=== PATIENT | female | born 1940 | race Caucasian/White ===

== ENCOUNTER 2017-07-07 14:35 | Emergency (ER) | payer MEDICARE ==
[~2017-07-07] VITALS: Ht 154.9 cm; Wt 68.0 kg
[~2017-07-07 14:35] MED LIST: ACET1CAP18 PO; ASPI1TAB69 PO; CALCTAB33 PO; CLON1TAB OR; FLUO10TA PO; HYDR-3133 PO; HYDR-3516 PO; HYDR-755 PO; LEVO.075 PO; LEXA10TA PO; MELA5TAB15 PO; MULTTAB67 PO; OMEP20TA PO; VITA10002 PO; VITA10003 PO; WARF5 PO
[2017-07-07 14:38] VITALS: BP 129/92; PULSE 74; RESP 16; TEMP 97.8; O2SAT 97
[2017-07-07] MEDS ORDERED: HYDR-755 PO (14:56)
[2017-07-07] MEDS ORDERED: CLON0.5T PO (14:56)
[2017-07-07] MEDS ORDERED: LEVO75TA3 PO (14:56)
[2017-07-07] MEDS ORDERED: VITA100064 PO (14:57)
[2017-07-07] MEDS ORDERED: SODIUM CHLORIDE 0.9% FLUSH 10 ML FLUSH IVF PRN (15:00)
[2017-07-07 15:13] LABS: AUTOMATED NEUTROPHIL # 5.2 TH/MM3 (1.8-7.7); BASOPHIL # 0.3 TH/MM3 (0-0.2); BASOPHIL % 2.8 % (0.0-2.0); EOSINOPHIL # 0.2 TH/MM3 (0-0.4); EOSINOPHIL % 1.9 % (0.0-4.0); HEMATOCRIT 41.4 % (35.0-46.0); HEMO FLAGS DIFF FINAL; LYMPH % 31.6 % (9.0-44.0); LYMPHOCYTE # 2.9 TH/MM3 (1.0-4.8); MEAN CORPUSCULAR HEMOGLOBIN 29.3 PG (27.0-34.0); MEAN CORPUSCULAR HGB CONC 32.2 % (32.0-36.0); MONO % 5.6 % (0.0-8.0); NEUT % 58.1 % (16.0-70.0); PLATELET COUNT 209 TH/MM3 (150-450); RED BLOOD COUNT 4.55 MIL/MM3 (4.00-5.30); RED CELL DISTRIBUTION WIDTH 14.2 % (11.6-17.2); WHITE BLOOD COUNT 9.1 TH/MM3 (4.0-11.0)
[2017-07-07 15:22] LABS: POTASSIUM 3.7 MEQ/L (3.5-5.1)
[2017-07-07 15:25] LABS: BICARBONATE 24.6 MEQ/L (21.0-32.0)
--- NOTE | 2017-07-07 15:25 | PD ---
HPI . Extremity pain Chief Complaint: Musculoskeletal Complaint Time Seen by Provider: 14:46 Travel History International Travel<30 days: No Contact w/Intl Traveler<30days: No Traveled to known affect area: No History of Present Illness HPI This patient presents with a 2 day history of calf pain. The pain has not been continuous. She actually no longer has pain. She states that her pain yesterday was worse with walking. She described it as a pulling sensation. It was relieved by rest. She awaken this morning with a burning sensation in her right hung. That sensation has now resolved. She now has left hip pain. In addition, she is complaining with shortness of breath which has been a chronic problem for a while now. She reports a 30 minute episodes of chest pain yesterday. She is concerned because she has a history of DVT and PE. Her Coumadin was stopped 2 weeks ago. PFSH Past Medical History Arthritis: Yes Anxiety: Yes Depression: Yes Cancer: No Cardiovascular Problems: No Diabetes: No Diminished Hearing: No Deep Vein Thrombosis: Yes Endocrine: Yes Gastrointestinal Disorders: Yes Genitourinary: No Hiatal Hernia: Yes Immune Disorder: No Musculoskeletal: Yes Neurologic: Yes Psychiatric: Yes Reproductive: No Respiratory: Yes (P.E.) Immunizations Current: No Thyroid Disease: Yes (Hypo-) Ulcer: No Influenza Vaccination: Yes ?: Not Menopausal: Yes Dilation and Curettage (D&C): Yes Tubal Ligation: Yes Past Surgical History Abdominal Surgery: Yes Appendectomy: Yes Cardiac Surgery: No Cholecystectomy: Yes Ear Surgery: No Endocrine Surgery: No Eye Surgery: No Genitourinary Surgery: Yes (Bladder) Gynecologic Surgery: Yes Hysterectomy: Yes Oral Surgery: Yes (Teeth extracted ) Thoracic Surgery: No Tonsillectomy: Yes Other Surgery: Yes (Face lift ) Social History Alcohol Use: Yes (Occ.) Tobacco Use: No (E CIGS) Substance Use: No Allergies-Medications (Allergen,Severity, Reaction): Coded Allergies: caffeine (Unverified Allergy, Severe, 07/07/17) Reported Meds & Prescriptions Reported Meds & Active Scripts Active Reported Vitamin D3 (Cholecalciferol) 1,000 Unit Tab 1,000 Units PO DAILY Clonazepam 0.5 Mg Tab 0.5 Mg PO BID Hydroxyzine HCl 10 Mg Tab 10 Mg PO HS Levothyroxine (Levothyroxine Sodium) 75 Mcg Tab 75 Mcg PO DAILY Vitamin B-12 (Cyanocobalamin) 1,000 Mcg Tab 1,000 Mcg PO DAILY Multiple Vitamin 1 Tab 1 Tab PO DAILY Melatonin 5 Mg Tab 3 Mg PO HS Calcium 600+D Plus Minerals (Calcium Carbonate-Vitamin D W/Minerals) 600-400 Mg- Unit Tab 1 Tab PO BID Review of Systems Except as stated in HPI: all other systems reviewed are Neg Respiratory: Positive: Shortness of Breath Musculoskeletal: Positive: Myalgias, No: Limited ROM Skin: No Change in Pigmentation Physical Exam Narrative GENERAL: This is an elderly woman who is using her cell phone in no acute distress. SKIN: Warm and dry. No discoloration of skin of her lower extremities. HEAD: Atraumatic. Normocephalic. EYES: Pupils equal and round. Extraocular movements are intact. ENT: No nasal bleeding or discharge. Mucous membranes pink and moist. NECK: Trachea midline. Neck is supple. CARDIOVASCULAR: Regular rate and rhythm. Heart sounds are normal. RESPIRATORY: No accessory muscle use. Lungs are clear with full air movement throughout. GASTROINTESTINAL: Abdomen soft, non-tender, nondistended. MUSCULOSKELETAL: No obvious deformities. No edema. No calf tenderness. She does have some tenderness in the left hip and pain with log rolling of the left hip. NEUROLOGICAL: Awake and alert. No obvious cranial nerve deficits. Motor grossly within normal limits. Normal speech. PSYCHIATRIC: Appropriate mood and affect; insight and judgment normal. Data Data Last Documented VS Vital Signs Date Time Temp Pulse Resp B/P (MAP) Pulse Ox O2 Delivery O2 Flow Rate FiO2 07/07/17 16:45 59 18 168/77 (107) 94 Room Air 07/07/17 14:38 97.8 Orders Orders Us Leg Venous Doppler Bilat (07/07/17 14:46) Complete Blood Count With Diff (07/07/17 14:52) Basic Metabolic Panel (Bmp) (07/07/17 14:52) Act Partial Throm Time (Ptt) (07/07/17 14:52) Prothrombin Time / Inr (Pt) (07/07/17 14:52) Iv Access Insert/Monitor (07/07/17 14:52) Ecg Monitoring (07/07/17 14:52) Oximetry (07/07/17 14:52) Oxygen Administration (07/07/17 14:52) Ct Pulmonary Angiogram (07/07/17 14:52) Sodium Chloride 0.9% Flush (Ns Flush) (07/07/17 15:00) Hip, Uni(Ap&Lat) W Ap Pelvis (07/07/17 15:01) Iohexol 350 Inj (Omnipaque 350 Inj) (07/07/17 16:00) Labs Laboratory Tests Test 07/07/17 15:05 White Blood Count 9.1 TH/MM3 Red Blood Count 4.55 MIL/MM3 Hemoglobin 13.3 GM/DL Hematocrit 41.4 % Mean Corpuscular Volume 91.0 FL Mean Corpuscular Hemoglobin 29.3 PG Mean Corpuscular Hemoglobin Concent 32.2 % Red Cell Distribution Width 14.2 % Platelet Count 209 TH/MM3 Mean Platelet Volume 7.7 FL Neutrophils (%) (Auto) 58.1 % Lymphocytes (%) (Auto) 31.6 % Monocytes (%) (Auto) 5.6 % Eosinophils (%) (Auto) 1.9 % Basophils (%) (Auto) 2.8 % Neutrophils # (Auto) 5.2 TH/MM3 Lymphocytes # (Auto) 2.9 TH/MM3 Monocytes # (Auto) 0.5 TH/MM3 Eosinophils # (Auto) 0.2 TH/MM3 Basophils # (Auto) 0.3 TH/MM3 CBC Comment DIFF FINAL Differential Comment Prothrombin Time 11.2 SEC Prothromb Time International Ratio 1.0 RATIO Activated Partial Thromboplast Time 24.9 SEC Blood Urea Nitrogen 13 MG/DL Creatinine 1.00 MG/DL Random Glucose 100 MG/DL Calcium Level 8.6 MG/DL Sodium Level 139 MEQ/L Potassium Level 3.7 MEQ/L Chloride Level 106 MEQ/L Carbon Dioxide Level 24.6 MEQ/L Anion Gap 8 MEQ/L Estimat Glomerular Filtration Rate 54 ML/MIN MDM Medical Decision Making Medical Screen Exam Complete: Yes Emergency Medical Condition: Yes Medical Record Reviewed: Yes (this patient has a cerebral aneurysm. She also has hypertension and hypothyroidism. She had a PE about a year ago.) Differential Diagnosis Differential diagnosis of leg pain includes but is not limited to lumbar radiculopathy, arthritis, myalgias, DVT. Narrative Course This patient presents concerned that she has a DVT or a PE. She has a history of same. She has been off of Coumadin for about 2 weeks. She is having some vague lower extremity pain. She had a 30 minute episode of chest pain yesterday. She has chronic shortness of breath. Ultrasound, CT for PE and left hip x-rays are pending. She needs renal function studies before contrast for the CT for PE. CBC & BMP Diagram 07/07/17 15:05 Calcium Level 8.6 Last Impressions Hip and Pelvis X-Ray 07/07/17 1501 Signed Impressions: Service Date/Time: Friday, July 07, 2017 15:59 - CONCLUSION: 1. No fracture , subluxation or other acute bony abnormality. 2. Apparently some recent intravenous contrast administration as there is excreted contrast in the urinary bladder. Nonspecific extrinsic impression seen on the bladder base. Shahram Lai MD Lower Extremity Ultrasound 07/07/17 1446 Signed Impressions: Service Date/Time: Friday, July 07, 2017 15:01 - CONCLUSION: Normal examination. Javy Jay Jr., MD CT for PE: There are segmental pulmonary emboli involving the right upper, right middle and right lower lobe branches as well as the left upper and the left lower lobe branches. Scattered fibrotic scarring is noted bilaterally. There is no alveolar consolidation to suggest focal pneumonia. No pulmonary edema is noted. No pulmonary nodule or mass is noted. Coronary artery calcifications are noted. No mediastinal, hilar or axillary lymphadenopathy is noted. No pleural effusion is noted. There is elevation of the right hemidiaphragm. Physician Communication Physician Communication Case discussed with Dr. Jones. This patient is not having any significant cardiovascular or pulmonary symptoms. That is, her heart rate, blood pressure, respiratory rate and oxygen saturation are acceptable. This patient will be treated outpatient with Xarelto. Diagnosis Primary Impression: Bilateral pulmonary embolism Referrals: Debora Garcia MD 1 week Patient Instructions: General Instructions, Pulmonary Embolism (DC) Med/Other Pt SpecificInfo: Prescription(s) given Scripts Rivaroxaban (Xarelto) 15 Mg Tab 15 MG PO Q12HR for Blood Clot Prevention for 21 Days, TAB 0 Refills Prov: Danae Sorensen MD 07/07/17 Disposition: 01 DISCHARGE HOME Condition: Stable Danae Sorensen MD Jul 07, 2017 15:25
[2017-07-07 15:27] LABS: APTT (PATIENT) 24.9 SEC (24.3-30.1); PROTHROMBIN TIME - PATIENT 11.2 SEC (9.8-11.6)
[2017-07-07 15:29] VITALS: BP 149/95; PULSE 61; RESP 18; O2SAT 94
--- NOTE | 2017-07-07 15:41 | RADRPT ---
EXAM DATE/TIME: 07/07/2017 15:01 [facility] COMPARISON: US LEG BILATERAL VENOUS DOPPLER, March 21, 2016, 8:18. INDICATIONS : Bilateral leg pain. MEDICAL HISTORY : Gastroesophageal reflux disease. Hypothyroidism. Hernia, hiatal. Arthritis. Depression. Pulmonar y embolism. SURGICAL HISTORY : Tonsillectomy.Appendectomy. Cholecystectomy.Tubal ligation. Hysterectomy. Dilation and curettage. Bladder surgery. ENCOUNTER: Subsequent ACUITY: 2 weeks PAIN SCORE: 8/10 LOCATION: Bilateral legs. TECHNIQUE: Venous ultrasound of the left and right leg was performed from the inguinal ligament to the proximal calf. Real-time, color Doppler and spectral tracing, compression and augmentation techniques were us ed. FINDINGS: RIGHT LEG: There is normal compressibility of the deep venous system from the inguinal region to the proximal ca lf. No echogenic clot is seen in the lumen of the common femoral, femoral, popliteal, and posterior tibial veins. There is a normal response of the venous system to proximal and distal augmentation an d respiration. LEFT LEG: There is normal compressibility of the deep venous system from the inguinal region to the proximal ca lf. No echogenic clot is seen in the lumen of the common femoral, femoral, popliteal, and posterior tibial veins. There is a normal response of the venous system to proximal and distal augmentation an d respiration. CONCLUSION: Normal examination. Javy Jay Jr., MD on July 07, 2017 at 15:33 Board Certified Radiologist. This report was verified electronically.
[2017-07-07] MEDS ORDERED: IOHEXOL 350 MG/ML 10 ML VIAL (for RAD DIAG) IVCONTRAST ONE (16:00)
--- NOTE | 2017-07-07 16:19 | RADRPT ---
EXAM DATE/TIME: 07/07/2017 15:59 [facility] COMPARISON: No previous studies available for comparison. INDICATIONS : Left hip area pain today, no known injury MEDICAL HISTORY : None. SURGICAL HISTORY : None. ENCOUNTER: Initial ACUITY: 1 day PAIN SCORE: 7/10 LOCATION: Left hip FINDINGS: The bony pelvis and left hip are intact and have normal morphology. There are no subluxations. There is excreted intravenous contrast in the urinary bladder. Lobulated extrinsic impressions seen o n the bladder base, nonspecific. CONCLUSION: 1. No fracture, subluxation or other acute bony abnormality. 2. Apparently some recent intravenous contrast administration as there is excreted contrast in the ur inary bladder. Nonspecific extrinsic impression seen on the bladder base. Shahram Lai MD on July 07, 2017 at 16:16 Board Certified Radiologist. This report was verified electronically.
--- NOTE | 2017-07-07 16:38 | RADRPT ---
EXAM DATE/TIME: 07/07/2017 15:50 [facility] COMPARISON: CT PULMONARY ANGIOGRAM, March 20, 2016, 17:21. INDICATIONS : Bilateral lower extremity pain. Evaluate for embolism. History of embolism. IV CONTRAST: 65 cc Omnipaque 350 (iohexol) IV RADIATION DOSE: 12.68 CTDIvol (mGy) MEDICAL HISTORY : Deep venous thrombosis. Hernia, hiatal. Gastroesophageal reflux disease. Pulmonary embolism. SURGICAL HISTORY : Appendectomy. Cholecystectomy. Hysterectomy. Bladder surgery. ENCOUNTER: Initial ACUITY: 1 day PAIN SCALE: 5/10 LOCATION: Chest TECHNIQUE: Volumetric scanning of the chest was performed using a pulmonary embolism protocol MIP images were re constructed. Using automated exposure control and adjustment of the mA and/or kV according to patien t size, radiation dose was kept as low as reasonably achievable to obtain optimal diagnostic quality images. DICOM format image data is available electronically for review and comparison. Follow-up recommendations for detected pulmonary nodules are based at a minimum on nodule size and pa tient risk factors according to Fleischner Society Guidelines. FINDINGS: There are segmental pulmonary emboli involving the right upper, right middle and right lower lobe branches as well as the left upper and the left lower lobe branches. Scattered fibrotic s carring is noted bilaterally. There is no alveolar consolidation to suggest focal pneumonia. No pulmonary edema is n oted. No pulmonary nodule or mass is noted. Coronary artery calcifications are noted. No mediastinal, hilar or axillary lymphadenopathy is noted. No pleural effusion is noted. There is elevation of the right hemidiaphra gm. CONCLUSION: 1. Pulmonary emboli within the right upper, right middle, right lower, left upper and left lower lobe pulmonary branches. 2. Scattered fibrotic scarring bilaterally. 3. Coronary artery calcifications. Zackary Alonzo MD on July 07, 2017 at 16:05 Board Certified Radiologist. This report was verified electronically.
[2017-07-07 16:45] VITALS: BP 168/77; PULSE 59; RESP 18; O2SAT 94
[2017-07-07] MEDS ORDERED: RIVAROXABAN 15 MG TAB PO ONE (17:00)
[2017-07-07] MEDS ORDERED: XARE15TA PO (17:00)
== END 2017-07-07 17:15 | disposition home or self-care (01) ==
LOC: PHED 14:35
DX: I26.99 Other pulmonary embolism without acute cor pulmonale (principal); M19.90 Unspecified osteoarthritis, unspecified site; Z86.718 Personal history of other venous thrombosis and embolism; E03.9 Hypothyroidism, unspecified; I25.10 Atherosclerotic heart disease of native coronary artery without angina pectoris; K21.9 Gastro-esophageal reflux disease without esophagitis; Z86.711 Personal history of pulmonary embolism; Z90.49 Acquired absence of other specified parts of digestive tract
CPT/HCPCS: 71275; 73502; 80048; 85025; 85610; 85730; 93970; 99285; Q9967

== ENCOUNTER 2017-10-28 08:30 | Inpatient (IN) | payer MEDICARE ==
[~2017-10-28] VITALS: Ht 154.9 cm; Wt 64.3 kg
[~2017-10-28 08:30] MED LIST changes: -ACET1CAP18 PO; -ASPI1TAB69 PO; +CLON0.5T PO; -CLON1TAB OR; -FLUO10TA PO; -HYDR-3133 PO; -HYDR-3516 PO; -LEVO.075 PO; +LEVO75TA3 PO; -LEXA10TA PO; +MELA5 PO; -MELA5TAB15 PO; -OMEP20TA PO; -VITA10003 PO; +VITA100064 PO; -WARF5 PO; +XARE15TA PO
[2017-11-18] MEDS ORDERED: DULO20 PO (12:42)
[2017-11-18] MEDS ORDERED: GABA300C5 PO (12:42)
[2017-11-18] MEDS ORDERED: HYDR-3583 PO (12:42)
[2017-11-18] MEDS ORDERED: MORP-43 PO (12:42)
[2017-11-18] MEDS ORDERED: ENOX30P SQ (18:12)
--- NOTE | 2017-11-27 18:05 | MH ---
cc: LUIS BULL M.D., PERVEZ R. M.D. DERBENWICK, MARY J. M.D. SERRANO-LOPEZ, CARMEN DATE OF ADMISSION 11/28/2017 ADMITTING DIAGNOSIS Lumbar degenerative disc disease. HISTORY OF THE PRESENT ILLNESS This is a 77-year-old female who presented to us for evaluation of chronic low back pain which she has had for years and has progressively gotten worse and is limiting her mobility. She presented with her daughter who helps give a history as the patient reports that she has poor memory. She has had exacerbations of radicular pain. More recently she had a bout of right lower extremity radicular pain approximately six months ago and had two injections by pain management. He placed her on extended release morphine and hydrocodone for breakthrough pain and helps the pain. The patient reports that when she lays down and flexes her legs this helps with her low back pain. She has urge incontinence and wears a pad all of the time. She reports numbness in her legs at night. She has not had any recent physical therapy. She went about a year ago to therapy and it made it worse. She has fallen on occasions and has pain and weakness in the right leg. PAST MEDICAL HISTORY Significant for: 1. Hypothyroidism. 2. Depression. 3. Anxiety. 4. Hysterectomy. 5. Cholecystectomy. 6. Bladder surgery. MEDICATIONS Current medications she takes: 1. Calcium with vitamin D. 2. Clonazepam 0.5 milligrams twice a day as needed for anxiety. 3. Duloxetine 60 milligrams daily. 4. She takes Gabapentin 300 milligrams q.h.s. 5. Xarelto 15 milligrams p.o. q.12h. This was placed on hold prior to surgical intervention. 6. She takes vitamin D3 1000 p.o. daily. 7. Levothyroxine 75 micrograms p.o. daily. 8. Vitamin B12 1000 micrograms p.o. daily. 9. Multivitamin p.o. daily. 10. Melatonin 3 milligrams p.o. q.h.s. ALLERGIES SHE IS ALLERGIC TO CAFFEINE TABLETS. FAMILY HISTORY Her father is at 72 years old from cardiac arrest. Her mother at 72 years old had Alzheimer's disease. Her brother is at 7 years old. Another brother is alive at 82 years old. A sister is at 64 years old, had cancer. Another sister is alive at 93 years old. SOCIAL HISTORY She is . She has children. She lives alone. She does not smoke, although has previously. She drinks approximately 2-3 drinks per year. REVIEW OF SYSTEMS CONSTITUTIONAL: She denies any fever or chills. EARS, NOSE, AND THROAT: No pharyngitis or exudate or bloody drainage from her nose. CARDIOVASCULAR: She denies any chest pain. Positive for palpitations. RESPIRATORY: No cough. Positive for shortness of breath. GENITOURINARY: No dysuria. Positive for urinary frequency and urgency. MUSCULOSKELETAL: Positive for low back pain. SKIN: No rashes or pruritus. NEUROLOGICAL: No difficulty with speech. Positive for difficulty with memory. GASTROINTESTINAL: No abdominal pain or diarrhea. Positive for constipation. PSYCHIATRIC: Positive for anxiety and depression symptoms. ENDOCRINE: No polyuria or polydipsia. HEMATOLOGIC: No bruising or bleeding tendencies. PHYSICAL EXAMINATION HEAD: Normocephalic, atraumatic. NECK: Supple. No carotid bruits heard on auscultation. LUNGS: Clear to auscultation bilaterally. HEART: Regular rate and rhythm. Normal S1-S2. ABDOMEN: Soft and nontender. Positive bowel sounds. SKIN: Reveals no cyanosis or erythema. MUSCULOSKELETAL: She has right EHL weakness at 4/5 otherwise 5/5 strength in the lower extremities. She ambulates with a cane. NEUROLOGICAL: She is awake, alert, oriented. Cranial nerves II through XII are grossly intact. Speech is fluent. Comprehension is good. Sensation is intact in the lower extremities. Reflexes are 2+ in the lower extremities. IMAGING Data reviewed, MRI of the lumbar spine from 05/31/2017 reveals severe degenerative disc disease with disc height collapse and end plate changes at the L5-S1 level with disc protrusion and facet arthropathy. There is also severe spinal stenosis at the L4-L5 level from facet ligament flavum hypertrophy. IMPRESSION A 77-year-old female with chronic history of progressively worsening back pain especially over the past year with severe neurogenic claudication. She cannot walk even 10 feet without the use of a cane. She has undergone physical therapy in the past as well as interventional pain management without much relief. The patient and her daughter are very concerned with the inactivity that is worsening and overall condition and making her weaker. She also suffers from chronic urinary incontinence and has had multiple bladder surgeries. She is on high doses of morphine but this does not control her pain and the side effects are effecting her memory and concentration. Her daughter states that she just basically lays in bed all day. She is also on chronic anticoagulation and was switched to Xarelto for bilateral pulmonary embolism. She was diagnosed with bilateral pulmonary embolism over a years ago and was on Coumadin but more recent CT angiogram of the chest revealed persistent emboli a few months ago. PLAN Given the severity of her lumbar spine findings and symptoms, we have recommended L4-L5 decompression with L5-S1 transforaminal interbody fusion. We have obtained clearance from her floorwalker. We have placed her anticoagulation on hold and she was bridged using Lovenox which was discontinued 48 hours prior to surgery. The procedure as well as the risks and benefits, alternatives and recovery time were explained in great detail to the patient and her daughter. We have discussed the procedure using spine models in the office and all of her their questions were answered to their satisfaction. We have discussed the risks involved with surgery which include but are not limited to bleeding, infection, muscle weakness, voice hoarseness, difficulty swallowing, heart attack, stroke, blood clots, including worsening pulmonary embolus, non fusion, scar tissue formation, bleeding, weakness, cardiopulmonary complications including . The patient states that she understands the procedure as well as the risks involved and she is requesting that we proceed and she was therefore, scheduled accordingly. DICTATED BY: Hero Estrada PA-C MD [facility] /4:55 PM /5:09 PM
[2017-11-28] MEDS ORDERED: LACTATED RINGER'S 1000 ML IV PRN (06:45)
[2017-11-28] MEDS ORDERED: POVIDONE IODINE 5% (ANTISEPSIS KIT) 4 APPLICATIONS EACH NARE PRN (06:45)
[2017-11-28] MEDS ORDERED: CHLORHEXIDINE GLUCONATE 2 % 1 PACK (2 CLOTHS) TOPICAL PRN (06:45)
[2017-11-28] MEDS ORDERED: ceFAZolin 2 GM PREMIX 50 ML IV SCH (06:45)
[2017-11-28] MEDS ORDERED: CHLORHEXIDINE GLUCONATE 2 % 1 PACK (2 CLOTHS)(extra cloths) TOPICAL PRN (06:45)
[2017-11-28] MEDS ORDERED: METOPROLOL TARTRATE 25 MG TAB PO PRN (06:45)
[2017-11-28] MEDS ORDERED: SODIUM CHLORID 0.9% 500 ML IV PRN (06:45)
[2017-11-28] MEDS ORDERED: VANCOMYCIN HCL 1000 MG VIAL ONE ×2 (06:46)
[2017-11-28] MEDS ORDERED: BUPIVACAINE/EPINEPHRINE 0.5% 50 ML VIAL ONE (06:46)
[2017-11-28] MEDS ORDERED: THROMBIN (TOPICAL) 5,000 UNIT VIAL ONE (06:46)
[2017-11-28] MEDS ORDERED: GELFOAM SIZE 100 ONE (06:46)
[2017-11-28] MEDS ORDERED: ACETAMINOPHEN 1000 MG/100 ML 100 ML IV ONE (08:06)
[2017-11-28] MEDS ORDERED: NEOSTIGMINE 5 MG/5 ML SYRINGE IV PUSH ONE (12:00)
[2017-11-28] MEDS ORDERED: PHENYLEPH/NS 1000 MCG/10 ML SYR IV ONE (12:00)
[2017-11-28] MEDS ORDERED: NORMOSOL R INJ 2,000 ML IV ONE (12:00)
[2017-11-28] MEDS ORDERED: LACTATED RINGER'S 1000 ML INJ 1,000 ML IV ONE (12:00)
[2017-11-28] MEDS ORDERED: ePHEDrine/NS 25 MG/5 ML SYRINGE IV ONE (12:00)
[2017-11-28] MEDS ORDERED: ONDANSETRON HCL 4 MG/2 ML VIAL IV PUSH ONE (12:00)
[2017-11-28] MEDS ORDERED: LIDOCAINE HCL 1% PF 5 ML SYRINGE OTHER ONE (12:00)
[2017-11-28] MEDS ORDERED: GLYCOPYRROLATE 1 MG/5 ML SYRINGE IV PUSH ONE (12:00)
[2017-11-28] MEDS ORDERED: PROPOFOL 200 MG/20 ML AMP IV ONE (12:00)
[2017-11-28] MEDS ORDERED: ROCURONIUM INJ 50 MG/5 ML SYRINGE IV PUSH ONE (12:00)
[2017-11-28] MEDS: NS + KCL 20 MEQ INJ 1,000 ML IV SCH ×2 (12:25→22:22)
[2017-11-28] MEDS ORDERED: hydrOXYzine HCL 10 MG TAB PO PRN (12:30)
[2017-11-28] MEDS ORDERED: ONDANSETRON HCL 4 MG/2 ML VIAL IV PUSH PRN (12:30)
[2017-11-28] MEDS ORDERED: CALCIUM GLUCONATE INJ 1 GM in SODIUM CHLORIDE 0.9% INJ 100 ML IV PRN (12:30)
[2017-11-28] MEDS ORDERED: RESP: ALBUTEROL 2.5 MG/3 ML NEB (PRN) NEB (12:30)
[2017-11-28] MEDS ORDERED: ACETAMINOPHEN 325 MG TAB PO PRN (12:30)
[2017-11-28] MEDS ORDERED: MENTHOL LOZENGE BUCCAL PRN (12:30)
[2017-11-28] MEDS ORDERED: HYDROmorphone HCL PF 1 MG/ML VIAL IV PUSH PRN (12:30)
[2017-11-28] MEDS ORDERED: BISACODYL 10 MG SUPP RECTAL PRN (12:30)
[2017-11-28] MEDS ORDERED: ALUMINUM/MAGNESIUM/SIMETH 30 ML CUP PO PRN (12:30)
[2017-11-28] MEDS ORDERED: SODIUM CHLORIDE 0.9% FLUSH 10 ML FLUSH IV FLUSH PRN (12:30)
[2017-11-28] MEDS ORDERED: MAGNESIUM SULFATE INJ 2 GM in SODIUM CHLORIDE 0.9% INJ 100 ML IV PRN (12:30)
[2017-11-28] MEDS ORDERED: LACTULOSE SYRUP 20 GM/30 ML CUP PO PRN (12:30)
[2017-11-28] MEDS ORDERED: POTASSIUM CHLOR 20 MEQ PREMIX 100 ML IV PRN (12:30)
[2017-11-28] MEDS ORDERED: ZOLPIDEM TARTRATE 5 MG TAB PO PRN (12:30)
[2017-11-28] MEDS ORDERED: PROMETHAZINE INJ 25 MG/ML VIAL IM PRN (12:30)
[2017-11-28] MEDS ORDERED: MAGNESIUM HYDROXIDE SUSP 30 ML CUP PO PRN (12:30)
[2017-11-28] MEDS ORDERED: SENNOSIDES 8.6 MG TAB PO PRN (12:30)
--- NOTE | 2017-11-28 12:46 | PD.OP ---
MD Debora Marks MD Pervez Iranpur, MD Operative Report Date of Surgery: Nov 28, 2017 Preoperative Diagnosis: L4-5 facet hypertrophy with left synovial cyst and associated spinal stenosis; L5-S1 severe degenerative disc disease with disc collapse with disc protrusion and facet hypertrophy with foraminal stenosis; intractable low back pain with radiculopathy Postoperative Diagnosis: Same Procedure: L5-S1 transforaminal interbody fusion; L4, L5 and S1 laminectomy with left L4-5 synovial cyst resection; L5-S1 pedicle screw fixation; L5-S1 interbody cage placement; microsurgical technique Anesthesia: Gen. endotracheal by Dayne grace Surgeon: Cody Julien M.D. Horse Breeder(s): Sheron Espino Operation and Findings: Following initiation of general endotracheal anesthesia, the patient had a Barrera catheter placed along with sequential compression devices. A gram of vancomycin was administered intravenously and he was turned in a prone position on a Willis frame, on a Taj table, and all pressure points adequately padded. The lumbosacral region was then prepped with Chloraprep and sterilely draped with Ioban along the usual sterile draping. A midline skin incision was then made extending from the L4-S1 levels after infiltrating the skin with 0.5% Marcaine with epinephrine solution extending down through the fascia. The muscle fibers were split using avascular fatty plane and detached from the underlying facets, transverse process and lateral portion of lamina on the left side and a self-retaining retractor used for exposure. Intraoperative fluoroscopy was also used for level of confirmation along with microscope magnification for further dissection. There was significant facet and ligamentum flavum hypertrophy noted at the L4-5 and L5-S1 levels. Left L5-S1 facet was resected with a drill bit along with the lamina and there was severe foraminal and lateral recess stenosis from hypertrophied ligamentum flavum and facet which were decompressed. There was significant disc height collapse along with disc protrusion also leading to the foraminal stenosis. Left L4-5 laminectomy with medial facetectomy also undertaken and hypertrophied ligamentum flavum resection with removal of a synovial cyst compressing on the thecal sac. Epidural hemostasis was achieved with bipolar cautery and Gelfoam with thrombin. Subsequently entered into the disc space at the L5-S1 level with a #15 blade and luigi were used for discectomy. I then placed PEEK cage packed with local autograft bone and more local autograft bone was packed adjacent to the cage in interspace for added interbody fusion. With placement of the cage, I was able to distract the interspace and opened up the foramen further bilaterally. Subsequently in order to facilitate the fusion and provide stabilization, pedicle screw fixation was undertaken using [place] spine screws on entry point at the left L5-S1 levels at the junction of the transverse process and facet. Subsequently using AP and lateral fluoroscopy tap and screw placement. The screws were then connected with a irving and locked in place with caps. The construct appeared very secure at this point. The area was then copiously irrigated with Vancomycin solution and powder. The retractors were removed and the bipolar cautery used for hemostasis. The muscle fascia was then approximated using 2-0 Vicryl interrupted stitches and then 3-0 Vicryl subcuticular stitches also placed in interrupted fashion. The final skin closure was completed with Mastisol and Steri-Strips. A sterile dressing was then applied. The patient then turned in supine position, extubated and taken to recovery room. There were no intraoperative complications. All sponge and needle counts were correct at the end of procedure. Estimated blood loss about 100 ml. Cody Julien MD Nov 28, 2017 12:46
--- NOTE | 2017-11-28 12:48 | RADRPT ---
EXAM DATE/TIME: 11/28/2017 08:49 [facility] COMPARISON: No previous studies available for comparison. INDICATIONS : Post-op L4-L5 laminectomy. L5-S1 posterior lumbar fusion. MEDICAL HISTORY : None. SURGICAL HISTORY : None. ENCOUNTER: Initial ACUITY: 1 day PAIN SCORE: Non-responsive. LOCATION: Lumbar spine. FINDINGS: AP and lateral views of the lower lumbar spine were obtained intraoperatively using a matrix camera t he patient is status post fusion at the L5-S1 level with left-sided pedicle screws and posterior fixa tion irving. There are metallic markers in the interspace and alignment is anatomic. The study is labele d assuming 5 [id number] lumbar-type vertebra. CONCLUSION: Status post fusion at the L5-S1 level. Cabrera Amador MD on November 28, 2017 at 12:45 Board Certified Radiologist. This report was verified electronically.
--- NOTE | 2017-11-28 12:49 | RADRPT ---
EXAM DATE/TIME: 11/28/2017 08:49 [facility] COMPARISON: No previous studies available for comparison. INDICATIONS : L4-L5 laminectomy. L5-S1 posterior lumbar fusion. Level localization. MEDICAL HISTORY : None. SURGICAL HISTORY : None. ENCOUNTER: Initial ACUITY: 1 day PAIN SCORE: Non-responsive. LOCATION: Lumbar spine. FINDINGS: A single crosstable lateral view of the lower lumbar spine was obtained intraoperatively using the ma trix camera and demonstrates 2 metallic probes in the posterior soft tissues one posterior to the L4 vertebral body and one posterior to the L5-S1 interspace. Mild degenerative disc changes are present at L5-S1 with disc space narrowing and hypertrophic change. The alignment is anatomic. The study is l abeled assuming 5 [id number] lumbar-type vertebra. CONCLUSION: Limited localization study as described. Cabrera Amador MD on November 28, 2017 at 12:46 Board Certified Radiologist. This report was verified electronically.
[2017-11-28] MEDS ORDERED: *morphine SULFATE 10 MG/ML PERIprocedure ONLY ONE ×2 (12:50→14:03)
[2017-11-28 13:19] LABS: AUTOMATED NEUTROPHIL # 3.9 TH/MM3 (1.8-7.7); BASOPHIL % 0.3 % (0.0-2.0); EOSINOPHIL # 0.2 TH/MM3 (0-0.4); EOSINOPHIL % 2.5 % (0.0-4.0); HEMATOCRIT 34.8 % (35.0-46.0); HEMOGLOBIN 11.5 GM/DL (11.6-15.3); LYMPH % 38.6 % (9.0-44.0); LYMPHOCYTE # 2.9 TH/MM3 (1.0-4.8); MEAN CELL VOLUME 89.5 FL (80.0-100.0); MEAN CORPUSCULAR HEMOGLOBIN 29.6 PG (27.0-34.0); MEAN PLATELET VOLUME 7.9 FL (7.0-11.0); MONO % 6.5 % (0.0-8.0); MONOCYTE # 0.5 TH/MM3 (0-0.9); NEUT % 52.1 % (16.0-70.0); PLATELET COUNT 172 TH/MM3 (150-450); RED BLOOD COUNT 3.89 MIL/MM3 (4.00-5.30); RED CELL DISTRIBUTION WIDTH 15.9 % (11.6-17.2); WHITE BLOOD COUNT 7.6 TH/MM3 (4.0-11.0)
[2017-11-28 13:36] LABS: BICARBONATE 26.6 MEQ/L (21.0-32.0); CALCIUM 8.2 MG/DL (8.5-10.1); CREATININE 0.82 MG/DL (0.50-1.00); MAGNESIUM 2.3 MG/DL (1.5-2.5)
[2017-11-28] MEDS ORDERED: DO NOT ADM ANY ANTICOAGULANT DRUGS PRN (13:45)
[2017-11-28] MEDS: ACETAMINOPHEN/HYDROcodone 325 MG/10 MG TAB PO PRN (15:19)
[2017-11-28 16:00] VITALS: BP 113/58; PULSE 81; RESP 17; TEMP 96.1; O2SAT 90
[2017-11-28] MEDS: HYDROmorphone HCL PF 2 MG/ML VIAL IV PRN (18:11)
[2017-11-28 20:00] VITALS: BP 107/57; PULSE 84; RESP 15; TEMP 96.4; O2SAT 92
[2017-11-28] MEDS: DOCUSATE SODIUM 50 MG/SENNA 8.6 MG TAB PO SCH (23:27)
[2017-11-28] MEDS: GABAPENTIN 300 MG CAP PO SCH (23:27)
[2017-11-28] MEDS: SODIUM CHLORIDE 0.9% FLUSH 10 ML FLUSH IV FLUSH SCH (23:27)
[2017-11-28] MEDS: MORPHINE SULFATE 15 MG CONTROLLED RELEASE TAB PO SCH (23:27)
[2017-11-28] MEDS: MELATONIN 5 MG TAB PO SCH (23:28)
[2017-11-29] VITALS: BP 135/74; PULSE 84; RESP 15; TEMP 98.5; O2SAT 94
[2017-11-29] MEDS: ACETAMINOPHEN/HYDROcodone 325 MG/10 MG TAB PO PRN ×4 (00:36→20:55)
[2017-11-29 04:00] VITALS: BP 104/61; PULSE 95; RESP 15; TEMP 99; O2SAT 92
[2017-11-29] MEDS: SODIUM CHLOR 0.9% 1000 ML INJ 1,000 ML IV SCH ×2 (06:45→21:21)
[2017-11-29 08:00] VITALS: BP 105/66; PULSE 89; RESP 18; TEMP 99.2; O2SAT 92
[2017-11-29] MEDS: MORPHINE SULFATE 15 MG CONTROLLED RELEASE TAB PO SCH ×2 (08:31→19:45)
[2017-11-29] MEDS: MULTIVITAMIN TAB PO SCH (08:31)
[2017-11-29] MEDS: DULoxetine HCl DR 20 MG CAP PO SCH (08:31)
[2017-11-29] MEDS: DOCUSATE SODIUM 50 MG/SENNA 8.6 MG TAB PO SCH ×2 (08:31→19:45)
[2017-11-29] MEDS: CHOLECALCIFEROL (VIT D3) 1000 UNIT TAB PO SCH (08:31)
[2017-11-29] MEDS: SODIUM CHLORIDE 0.9% FLUSH 10 ML FLUSH IV FLUSH SCH ×2 (08:32→19:46)
[2017-11-29] MEDS: LEVOTHYROXINE SODIUM 75 MCG TAB PO SCH (08:32)
[2017-11-29] MEDS: CYANOCOBALAMIN 1,000 MCG TAB PO SCH (08:32)
[2017-11-29] MEDS: PANTOPRAZOLE SOD 40 MG DELAYED RELEASE TAB PO SCH (08:32)
[2017-11-29] MEDS: NS + KCL 20 MEQ INJ 1,000 ML IV SCH ×3 (08:37→21:21)
[2017-11-29] MEDS ORDERED: INFLUENZA VIRUS VACCINE (QUADRIVALENT) 0.5 ML SYR IM ONE (09:00)
--- NOTE | 2017-11-29 09:41 | HHI.NSPN ---
(Hero Estrada) History Chief Complaint: Incisional pain. (Hero Estrada) Interval History 11/29: Pt s/p L5-S1 transforaminal interbody fusion; L4, L5 and S1 laminectomy with left L4-5 synovial cyst resection; L5-S1 pedicle screw fixation; L5-S1 interbody cage placement. She complains of incisional pain. Very painful with movement. No radiculopathy in LEs. (Hero Estrada) Review of Systems General: Negative for: fever, chills, insomnia Respiratory: Negative for: shortness of breath, cough, sputum Cardiovascular: Negative for: chest pain Gastrointestinal: Negative for: nausea, vomitting, diarrhea, constipation ( Hero Estrada) Exam Results Vital Signs Date Time Temp Pulse Resp B/P (MAP) Pulse Ox O2 Delivery O2 Flow Rate FiO2 11/29/17 08:00 99.2 89 18 105/66 (79) 92 11/28/17 22:24 Room Air 11/28/17 19:01 2.00 Intake and Output 11/29/17 11/29/17 11/30/17 08:00 16:00 00:00 Intake Total 1130 ml Output Total 600 ml Balance 530 ml (Hero Estrada) Physical Examination Resp: CTA bilaterally Heart: NSR no murmurs Abd: Soft positive bs Skin: No cyanosis or erythema. Pt log rolled. Incision clean and dry. New bandage placed by me. Muscle: Moves all 4 extremities with good strength in bed. Neuro: Pt awake and alert. She is confused but pleasant. Follows commands well. (Hero Estrada) Lab, Micro, Other Results Last Impressions Lumbar Spine X-Ray 11/28/17 0000 Signed Impressions: Service Date/Time: November 08:49 - CONCLUSION: Limited localization study as described. Cabrera Amador MD Laboratory Tests Test 11/28/17 12:58 White Blood Count 7.6 TH/MM3 Red Blood Count 3.89 MIL/MM3 Hemoglobin 11.5 GM/DL Hematocrit 34.8 % Mean Corpuscular Volume 89.5 FL Mean Corpuscular Hemoglobin 29.6 PG Mean Corpuscular Hemoglobin Concent 33.0 % Red Cell Distribution Width 15.9 % Platelet Count 172 TH/MM3 Mean Platelet Volume 7.9 FL Neutrophils (%) (Auto) 52.1 % Lymphocytes (%) (Auto) 38.6 % Monocytes (%) (Auto) 6.5 % Eosinophils (%) (Auto) 2.5 % Basophils (%) (Auto) 0.3 % Neutrophils # (Auto) 3.9 TH/MM3 Lymphocytes # (Auto) 2.9 TH/MM3 Monocytes # (Auto) 0.5 TH/MM3 Eosinophils # (Auto) 0.2 TH/MM3 Basophils # (Auto) 0.0 TH/MM3 CBC Comment DIFF FINAL Differential Comment Blood Urea Nitrogen 12 MG/DL Creatinine 0.82 MG/DL Random Glucose 135 MG/DL Calcium Level 8.2 MG/DL Magnesium Level 2.3 MG/DL Sodium Level 142 MEQ/L Potassium Level 3.6 MEQ/L Chloride Level 108 MEQ/L Carbon Dioxide Level 26.6 MEQ/L Anion Gap 7 MEQ/L Estimat Glomerular Filtration Rate 67 ML/MIN (Hero Estrada) Medical Decision Making Impression and Plan A: 77 y/o FM s/p L5-S1 transforaminal interbody fusion; L4, L5 and S1 laminectomy with left L4-5 synovial cyst resection; L5-S1 pedicle screw fixation ; L5-S1 interbody cage placement. P: Continue with pain control Rehab efforts (Hero Estrada) Attending Statement The exam, history, and the medical decision-making described in the above note were completed with the assistance of the mid-level provider. I reviewed and agree with the findings presented. I attest that I had a [id number] encounter with the patient on the same day, and personally performed and documented my assessment and findings in the medical record. (Cody Julien MD) Hero Estrada Nov 29, 2017 09:41 Cody Julien MD Nov 29, 2017 12:55
[2017-11-29 11:38] VITALS: BP 123/70; PULSE 84; RESP 18; TEMP 98.7; O2SAT 93
[2017-11-29 15:48] VITALS: BP 125/70; PULSE 86; RESP 18; TEMP 97.3; O2SAT 93
[2017-11-29] MEDS: HYDROmorphone HCL PF 2 MG/ML VIAL IV PRN (18:09)
[2017-11-29] MEDS: MELATONIN 5 MG TAB PO SCH (19:45)
[2017-11-29] MEDS: GABAPENTIN 300 MG CAP PO SCH (19:45)
[2017-11-29] MEDS: ENOXAPARIN SODIUM 30 MG/0.3 ML SYRINGE SQ SCH (19:46)
[2017-11-29 20:00] VITALS: BP 123/75; PULSE 92; RESP 15; TEMP 99; O2SAT 96
[2017-11-29] MEDS: CYCLOBENZAPRINE HCL 10 MG TAB PO PRN (20:55)
[2017-11-29] MEDS ORDERED: ENOXAPARIN SODIUM 30 MG/0.3 ML SYRINGE SQ SCH (21:00)
[2017-11-30] VITALS: BP 151/77; PULSE 92; RESP 15; TEMP 99.6; O2SAT 92
[2017-11-30 04:00] VITALS: BP 179/89; PULSE 85; RESP 15; TEMP 98.4; O2SAT 95
[2017-11-30] MEDS: ACETAMINOPHEN/HYDROcodone 325 MG/10 MG TAB PO PRN ×3 (04:03→22:01)
[2017-11-30] MEDS: clonazePAM 0.5 MG TAB PO PRN ×2 (04:03→15:01)
[2017-11-30] MEDS: MORPHINE SULFATE 15 MG CONTROLLED RELEASE TAB PO SCH ×2 (07:53→19:42)
[2017-11-30] MEDS: CHOLECALCIFEROL (VIT D3) 1000 UNIT TAB PO SCH (07:53)
[2017-11-30] MEDS: PANTOPRAZOLE SOD 40 MG DELAYED RELEASE TAB PO SCH (07:53)
[2017-11-30] MEDS: cloNIDine HCL 0.1 MG TAB PO PRN (07:53)
[2017-11-30] MEDS: DOCUSATE SODIUM 50 MG/SENNA 8.6 MG TAB PO SCH ×2 (07:54→19:42)
[2017-11-30] MEDS: LEVOTHYROXINE SODIUM 75 MCG TAB PO SCH (07:54)
[2017-11-30] MEDS: MULTIVITAMIN TAB PO SCH (07:54)
[2017-11-30] MEDS: DULoxetine HCl DR 20 MG CAP PO SCH (07:54)
[2017-11-30] MEDS: CYANOCOBALAMIN 1,000 MCG TAB PO SCH (07:54)
[2017-11-30 08:00] VITALS: BP 192/97; PULSE 80; RESP 17; TEMP 98.7; O2SAT 93
[2017-11-30] MEDS: ENOXAPARIN SODIUM 30 MG/0.3 ML SYRINGE SQ SCH ×2 (08:04→19:43)
[2017-11-30] MEDS: SODIUM CHLORIDE 0.9% FLUSH 10 ML FLUSH IV FLUSH SCH ×2 (09:00→19:43)
[2017-11-30] MEDS ORDERED: INFLUENZA VIRUS VACCINE (QUADRIVALENT) 0.5 ML SYR IM ONE (10:00)
[2017-11-30 12:00] VITALS: BP 143/86; PULSE 92; RESP 17; TEMP 96.6; O2SAT 95
[2017-11-30] MEDS: CYCLOBENZAPRINE HCL 10 MG TAB PO PRN (13:01)
[2017-11-30] MEDS: HYDROmorphone HCL PF 2 MG/ML VIAL IV PRN (14:52)
--- NOTE | 2017-11-30 15:09 | HHI.NSPN ---
History Chief Complaint: Left leg pain. Interval History 11/29: Pt s/p L5-S1 transforaminal interbody fusion; L4, L5 and S1 laminectomy with left L4-5 synovial cyst resection; L5-S1 pedicle screw fixation; L5-S1 interbody cage placement. She complains of incisional pain. Very painful with movement. No radiculopathy in LEs. 11/30: The patient is awake in bed when seen. She complains of pain radiating down the left lower extremity that is worse than before surgery. She has no pain to the right lower. She denies any numbness or tingling to the lower extremities. The patient did state she got up and walked out in the marks but her daughter states she only did three steps to the chair. The patient reports that the pain medication does help. Her daughter says her mother had confusion prior to entering the hospital but it became worse with the hydromorphone. Once it was stopped and she was placed on morphine the patient was doing better per the daughter. The daughter reports that the patient has been on MS Contin for years. Exam Results 11/28/17 11/28/17 11/29/17 11/29/17 11/30/17 11/30/17 06:00 18:00 06:00 18:00 06:00 18:00 Intake Total 2369 ml 1730 ml 1659 ml 480 ml Output Total 675 ml 1300 ml 1450 ml Balance 1694 ml 430 ml 209 ml 480 ml Intake Oral 600 ml 600 ml 480 ml IV Total 2369 ml 1130 ml 1059 ml Output Urine Total 575 ml 1300 ml 1450 ml Estimated Blood Loss 100 ml # Voids 4 4 # Bowel Movements 0 Vital Signs Date Time Temp Pulse Resp B/P (MAP) Pulse Ox O2 Delivery O2 Flow Rate FiO2 11/30/17 12:00 96.6 92 17 143/86 (105) 95 11/30/17 08:00 98.7 80 17 192/97 (128) 93 11/30/17 04:00 98.4 85 15 179/89 (119) 95 11/30/17 00:00 99.6 92 15 151/77 (101) 92 11/29/17 20:00 99.0 92 15 123/75 (91) 96 11/29/17 15:48 97.3 86 18 125/70 (88) 93 11/29/17 11:38 98.7 84 18 123/70 (87) 93 11/29/17 08:00 99.2 89 18 105/66 (79) 92 11/29/17 04:00 99.0 95 15 104/61 (75) 92 11/29/17 00:00 98.5 84 15 135/74 (94) 94 11/28/17 22:24 Room Air 11/28/17 20:00 96.4 84 15 107/57 (74) 92 11/28/17 19:01 Nasal Cannula 2.00 11/28/17 16:00 96.1 81 17 113/58 (76) 90 11/28/17 14:00 97 12 111/59 (76) 96 Nasal Cannula 3 11/28/17 13:45 85 12 106/59 (75) 97 Nasal Cannula 3 11/28/17 13:30 91 13 105/59 (74) 97 Nasal Cannula 3 11/28/17 13:15 92 13 112/58 (76) 97 Nasal Cannula 3 11/28/17 13:00 97 12 120/64 (82) 98 Nasal Cannula 3 11/28/17 12:45 94 12 146/67 (93) 98 Nasal Cannula 3 11/28/17 12:33 97.7 104 16 159/86 (110) 98 Nasal Cannula 3 11/28/17 07:40 98.0 76 16 142/88 (106) 94 Physical Examination The physical examination is scribed for Dr Marks by this practitioner. GENERAL: Awake & alert. Readily interacts. No evident distress. MUSCULOSKELETAL: DELUCA w/o difficulty. Dressing dry & intact to lumbar surgical incision. TTP along left vastus lateralis. NEUROLOGICAL: Awake but confused. Speech clear. Follows simple commands w/o difficulty. Sensation intact to light touch to lower extremities. Muscle strength strong to lower extremities. LLE pain from calf up to thigh/buttock with outward rotation of extremity. Lab, Micro, Other Results Recent Impressions Lumbar Spine X-Ray 11/28/17 0000 Signed Impressions: Service Date/Time: November 08:49 - CONCLUSION: Limited localization study as described. Cabrera Amador MD Lumbar Spine X-Ray 11/28/17 0000 Signed Impressions: Service Date/Time: November 08:49 - CONCLUSION: Status post fusion at the L5-S1 level. Cabrera Amador MD Laboratory Tests Test 11/28/17 12:58 White Blood Count 7.6 TH/MM3 Red Blood Count 3.89 MIL/MM3 Hemoglobin 11.5 GM/DL Hematocrit 34.8 % Mean Corpuscular Volume 89.5 FL Mean Corpuscular Hemoglobin 29.6 PG Mean Corpuscular Hemoglobin Concent 33.0 % Red Cell Distribution Width 15.9 % Platelet Count 172 TH/MM3 Mean Platelet Volume 7.9 FL Neutrophils (%) (Auto) 52.1 % Lymphocytes (%) (Auto) 38.6 % Monocytes (%) (Auto) 6.5 % Eosinophils (%) (Auto) 2.5 % Basophils (%) (Auto) 0.3 % Neutrophils # (Auto) 3.9 TH/MM3 Lymphocytes # (Auto) 2.9 TH/MM3 Monocytes # (Auto) 0.5 TH/MM3 Eosinophils # (Auto) 0.2 TH/MM3 Basophils # (Auto) 0.0 TH/MM3 CBC Comment DIFF FINAL Differential Comment Blood Urea Nitrogen 12 MG/DL Creatinine 0.82 MG/DL Random Glucose 135 MG/DL Calcium Level 8.2 MG/DL Magnesium Level 2.3 MG/DL Sodium Level 142 MEQ/L Potassium Level 3.6 MEQ/L Chloride Level 108 MEQ/L Carbon Dioxide Level 26.6 MEQ/L Anion Gap 7 MEQ/L Estimat Glomerular Filtration Rate 67 ML/MIN Medical Decision Making Impression and Plan Impression: 77 y/o FM s/p L5-S1 transforaminal interbody fusion; L4, L5 and S1 laminectomy with left L4-5 synovial cyst resection; L5-S1 pedicle screw fixation; L5-S1 interbody cage placement. Left vastus lateralis pain. Hypertension. Physical Therapy recommends inpatient rehab for further therapy. Plan: Continue with pain control Rehab efforts Plan for discharge Saturday to SNF for further therapy. Grady Cedeno Nov 30, 2017 15:09
[2017-11-30 16:00] VITALS: BP 143/78; PULSE 84; RESP 18; TEMP 98.6; O2SAT 93
[2017-11-30] MEDS: MELATONIN 5 MG TAB PO SCH (19:42)
[2017-11-30] MEDS: GABAPENTIN 300 MG CAP PO SCH (19:43)
[2017-11-30 20:25] VITALS: BP 149/80; PULSE 93; RESP 16; TEMP 99.7; O2SAT 95
[2017-12-01 00:09] VITALS: BP 123/68; PULSE 105; RESP 16; TEMP 99.2; O2SAT 95
[2017-12-01 04:08] VITALS: BP 142/82; PULSE 81; RESP 16; TEMP 98.5; O2SAT 96
[2017-12-01] MEDS: MORPHINE SULFATE 15 MG CONTROLLED RELEASE TAB PO SCH ×2 (07:28→20:31)
[2017-12-01] MEDS: ENOXAPARIN SODIUM 30 MG/0.3 ML SYRINGE SQ SCH ×2 (07:28→20:30)
[2017-12-01] MEDS: CYANOCOBALAMIN 1,000 MCG TAB PO SCH (07:28)
[2017-12-01] MEDS: CHOLECALCIFEROL (VIT D3) 1000 UNIT TAB PO SCH (07:29)
[2017-12-01] MEDS: PANTOPRAZOLE SOD 40 MG DELAYED RELEASE TAB PO SCH (07:29)
[2017-12-01] MEDS: LEVOTHYROXINE SODIUM 75 MCG TAB PO SCH (07:29)
[2017-12-01] MEDS: MULTIVITAMIN TAB PO SCH (07:29)
[2017-12-01] MEDS: GABAPENTIN 300 MG CAP PO SCH (07:29)
[2017-12-01] MEDS: DOCUSATE SODIUM 50 MG/SENNA 8.6 MG TAB PO SCH ×2 (07:29→20:30)
[2017-12-01] MEDS: ACETAMINOPHEN/HYDROcodone 325 MG/10 MG TAB PO PRN ×4 (07:32→22:29)
[2017-12-01 07:51] VITALS: BP 157/88; PULSE 78; RESP 18; TEMP 98.1; O2SAT 96
[2017-12-01] MEDS: SODIUM CHLORIDE 0.9% FLUSH 10 ML FLUSH IV FLUSH SCH ×2 (09:00→20:33)
[2017-12-01] MEDS: DULoxetine HCl DR 20 MG CAP PO SCH (09:00)
[2017-12-01 12:00] VITALS: BP 140/90; PULSE 86; RESP 18; TEMP 97.8; O2SAT 95
--- NOTE | 2017-12-01 14:21 | HHI.NSPN ---
History Chief Complaint: Pain to the back and left leg. Interval History 11/29: Pt s/p L5-S1 transforaminal interbody fusion; L4, L5 and S1 laminectomy with left L4-5 synovial cyst resection; L5-S1 pedicle screw fixation; L5-S1 interbody cage placement. She complains of incisional pain. Very painful with movement. No radiculopathy in LEs. 11/30: The patient is awake in bed when seen. She complains of pain radiating down the left lower extremity that is worse than before surgery. She has no pain to the right lower. She denies any numbness or tingling to the lower extremities. The patient did state she got up and walked out in the marks but her daughter states she only did three steps to the chair. The patient reports that the pain medication does help. Her daughter says her mother had confusion prior to entering the hospital but it became worse with the hydromorphone. Once it was stopped and she was placed on morphine the patient was doing better per the daughter. The daughter reports that the patient has been on MS Contin for years. 12/01: This afternoon the patient is awake and alert in bed visiting with her family. She says she is doing good. She still has some pain to the lower back and the pain to the left lower extremity. The pain to the left lower extremity she says is when she puts pressure onto it or tries to stand. Then the pain will shoot up from the calf into the hip and it is severe. She says the right lower extremity has no problems. Exam Results 11/29/17 11/29/17 11/30/17 11/30/17 12/01/17 12/01/17 06:00 18:00 06:00 18:00 06:00 18:00 Intake Total 1730 ml 1659 ml 480 ml 240 ml 120 ml Output Total 1300 ml 1450 ml 500 ml Balance 430 ml 209 ml 480 ml -260 ml 120 ml Intake Oral 600 ml 600 ml 480 ml 240 ml 120 ml IV Total 1130 ml 1059 ml Output Urine Total 1300 ml 1450 ml 500 ml # Voids 4 4 4 # Bowel Movements 0 0 0 Vital Signs Date Time Temp Pulse Resp B/P (MAP) Pulse Ox O2 Delivery O2 Flow Rate FiO2 12/01/17 12:00 97.8 86 18 140/90 (107) 95 12/01/17 07:51 98.1 78 18 157/88 (111) 96 12/01/17 04:08 98.5 81 16 142/82 (102) 96 12/01/17 00:09 99.2 105 16 123/68 (86) 95 11/30/17 23:29 18 11/30/17 20:25 99.7 93 16 149/80 (103) 95 11/30/17 20:20 18 11/30/17 20:06 Room Air 11/30/17 16:00 98.6 84 18 143/78 (99) 93 11/30/17 12:00 96.6 92 17 143/86 (105) 95 11/30/17 08:00 98.7 80 17 192/97 (128) 93 11/30/17 04:00 98.4 85 15 179/89 (119) 95 11/30/17 00:00 99.6 92 15 151/77 (101) 92 11/29/17 20:00 99.0 92 15 123/75 (91) 96 11/29/17 15:48 97.3 86 18 125/70 (88) 93 11/29/17 11:38 98.7 84 18 123/70 (87) 93 11/29/17 08:00 99.2 89 18 105/66 (79) 92 11/29/17 04:00 99.0 95 15 104/61 (75) 92 11/29/17 00:00 98.5 84 15 135/74 (94) 94 11/28/17 22:24 Room Air 11/28/17 20:00 96.4 84 15 107/57 (74) 92 11/28/17 19:01 Nasal Cannula 2.00 11/28/17 16:00 96.1 81 17 113/58 (76) 90 Physical Examination GENERAL: Awake & alert in bed visiting with family. Readily interacts. No evident distress. MUSCULOSKELETAL: DELUCA w/o difficulty. Mildly TTP along left vastus lateralis. Lumbar surgical incision moderately TTP, dressing intact w/o any shadowing. NEUROLOGICAL: Awake & alert. Speech clear. Follows simple commands w/o difficulty. Sensation intact to light touch to lower extremities. Motor strength is 5/5 to all major flexion & extension muscle groups of the lower extremities. LLE pain from calf up to thigh/buttock with any outward rotation of extremity. Medical Decision Making Impression and Plan Impression: 77 y/o FM s/p L5-S1 transforaminal interbody fusion; L4, L5 and S1 laminectomy with left L4-5 synovial cyst resection; L5-S1 pedicle screw fixation; L5-S1 interbody cage placement. Patient doing well. Sensation & motor strength appears normal. Pain controlled except w/outward rotation of the LLE. Left vastus lateralis pain. Hypertension. Physical Therapy recommends inpatient rehab for further therapy. Plan: Continue with pain control Rehab efforts Possible discharge Saturday to SNF for further therapy. Grady Cedeno Dec 01, 2017 14:21
[2017-12-01] MEDS: clonazePAM 0.5 MG TAB PO PRN ×2 (14:41→23:23)
[2017-12-01] MEDS: CYCLOBENZAPRINE HCL 10 MG TAB PO PRN ×2 (14:41→23:23)
[2017-12-01 16:00] VITALS: BP 139/81; PULSE 78; RESP 18; TEMP 98.8; O2SAT 96
[2017-12-01] MEDS: MELATONIN 5 MG TAB PO SCH (20:30)
[2017-12-01 20:38] VITALS: BP 142/68; PULSE 84; RESP 17; TEMP 98.7; O2SAT 97
[2017-12-02] VITALS: BP 151/88; PULSE 93; RESP 20; TEMP 99.1; O2SAT 97
[2017-12-02 04:00] VITALS: BP 149/71; PULSE 82; RESP 18; TEMP 98.4; O2SAT 95
[2017-12-02] MEDS: SODIUM CHLOR 0.9% 1000 ML INJ 1,000 ML IV SCH (06:45)
[2017-12-02 08:00] VITALS: BP 186/92; PULSE 79; RESP 18; TEMP 97.5; O2SAT 98
--- NOTE | 2017-12-02 09:17 | HHI.NSPN ---
History Chief Complaint: Pain to the back and left leg. Interval History 11/29: Pt s/p L5-S1 transforaminal interbody fusion; L4, L5 and S1 laminectomy with left L4-5 synovial cyst resection; L5-S1 pedicle screw fixation; L5-S1 interbody cage placement. She complains of incisional pain. Very painful with movement. No radiculopathy in LEs. 12/02: Pt complains of pain in LEs "all over" and into the feet in a nondermatomal distribution. She has periods of confusion. Review of Systems General: Negative for: fever, chills, insomnia Respiratory: Negative for: shortness of breath, cough, sputum Cardiovascular: Negative for: chest pain Gastrointestinal: Negative for: nausea, vomitting, diarrhea, constipation Exam Results Vital Signs Date Time Temp Pulse Resp B/P (MAP) Pulse Ox O2 Delivery O2 Flow Rate FiO2 12/02/17 08:00 97.5 79 18 186/92 (123) 98 12/01/17 20:30 Room Air 11/28/17 19:01 2.00 Intake and Output 12/02/17 12/02/17 12/03/17 08:00 16:00 00:00 Intake Total 720 ml Balance 720 ml Physical Examination General: Awake & alert in bed. Readily interacts. No evident distress. Resp: CTA bilaterally Heart: NSR no murmurs Abd: Soft positive bs. Skin: No cyanosis or erythema. Pt sitting up in bed with brace on eating breakfast. Musculoskeletal: DELUCA w/o difficulty. 5/5 strength in LEs. Neurological: Pt awake and alert. Follows commands well. Speech clear and appropriate. Sensation intact in LEs. Lab, Micro, Other Results Last Impressions Lumbar Spine X-Ray 11/28/17 0000 Signed Impressions: Service Date/Time: November 08:49 - CONCLUSION: Limited localization study as described. Cabrera Amador MD Medical Decision Making Impression and Plan A: 77 y/o FM s/p L5-S1 transforaminal interbody fusion; L4, L5 and S1 laminectomy with left L4-5 synovial cyst resection; L5-S1 pedicle screw fixation ; L5-S1 interbody cage placement. P: Continue with rehab efforts. Rehab placement Hero Estrada Dec 02, 2017 9:17 am
[2017-12-02] MEDS: CYANOCOBALAMIN 1,000 MCG TAB PO SCH (09:29)
[2017-12-02] MEDS: LEVOTHYROXINE SODIUM 75 MCG TAB PO SCH (09:29)
[2017-12-02] MEDS: DULoxetine HCl DR 20 MG CAP PO SCH (09:29)
[2017-12-02] MEDS: PANTOPRAZOLE SOD 40 MG DELAYED RELEASE TAB PO SCH (09:29)
[2017-12-02] MEDS: MULTIVITAMIN TAB PO SCH (09:29)
[2017-12-02] MEDS: CHOLECALCIFEROL (VIT D3) 1000 UNIT TAB PO SCH (09:29)
[2017-12-02] MEDS: DOCUSATE SODIUM 50 MG/SENNA 8.6 MG TAB PO SCH (09:29)
[2017-12-02] MEDS: ENOXAPARIN SODIUM 30 MG/0.3 ML SYRINGE SQ SCH (09:29)
[2017-12-02] MEDS: MORPHINE SULFATE 15 MG CONTROLLED RELEASE TAB PO SCH (09:29)
[2017-12-02] MEDS: SODIUM CHLORIDE 0.9% FLUSH 10 ML FLUSH IV FLUSH SCH (09:30)
[2017-12-02] MEDS: clonazePAM 0.5 MG TAB PO PRN (11:39)
[2017-12-02] MEDS: CYCLOBENZAPRINE HCL 10 MG TAB PO PRN (11:39)
[2017-12-02 12:00] VITALS: BP 189/90; PULSE 86; RESP 18; TEMP 99.3; O2SAT 96
[2017-12-02] MEDS: ACETAMINOPHEN/HYDROcodone 325 MG/10 MG TAB PO PRN (12:57)
[2017-12-02 13:30] VITALS: BP 173/93
[2017-12-02] MEDS: cloNIDine HCL 0.1 MG TAB PO PRN (13:33)
== END 2017-12-02 14:11 | DRG 455 ==
LOC: HSDI 11-28 06:06 → N06A 11-28 15:13
PROVIDERS: ADMIT Neurological Surgery; ATTEND Neurological Surgery
PROC: 0SG30J1 Fusion of Lumbosacral Joint with Synthetic Substitute, Posterior Approach, Posterior Column, Open Approach (ICD-10-PCS; 2017-11-28)
PROC: 0SB00ZZ Excision of Lumbar Vertebral Joint, Open Approach (ICD-10-PCS; 2017-11-28)
PROC: 0MBD0ZZ Excision of Lower Spine Bursa and Ligament, Open Approach (ICD-10-PCS; 2017-11-28)
PROC: 0ST40ZZ Resection of Lumbosacral Disc, Open Approach (ICD-10-PCS; 2017-11-28)
PROC: 0SG30AJ Fusion of Lumbosacral Joint with Interbody Fusion Device, Posterior Approach, Anterior Column, Open Approach (ICD-10-PCS; principal; 2017-11-28 08:41)
DX: M48.062 Spinal stenosis, lumbar region with neurogenic claudication (principal); I10 Essential (primary) hypertension; F32.9 Major depressive disorder, single episode, unspecified; M51.17 Intervertebral disc disorders with radiculopathy, lumbosacral region; E03.9 Hypothyroidism, unspecified; N39.41 Urge incontinence; G89.29 Other chronic pain; F41.9 Anxiety disorder, unspecified; M71.30 Other bursal cyst, unspecified site; Z87.891 Personal history of nicotine dependence; Z23 Encounter for immunization; Z79.01 Long term (current) use of anticoagulants; Z86.711 Personal history of pulmonary embolism
CPT/HCPCS: 72020; 72100; 76000; 80048; 83735; 85025; 86850; 86900; 86901; 90471; 90686; 94150; C1713; G0008; J0131; J0690; J1170; J1650; J2270; J2370; J2405; J2710; J3010; J3370; J3480; J7120; Q2038

== ENCOUNTER → 2017-11-18 | Outpatient (CLI) | payer MEDICARE ==
[~2017-11-18] MED LIST changes: +DULO20 PO; +ENOX30P SQ; +GABA300C5 PO; +HYDR-3583 PO; +MORP-43 PO
--- NOTE | 2017-11-19 15:48 | EKG ---
Date Performed: 11/18/2017 Time Performed: 13:05:30 PTAGE: 77 years EKG: Sinus rhythm with borderline 1st degree A-V block. Extensive T wave changes are nonspecific Borderline ECG PREVIOUS TRACING : 03/20/2016 15.04 Compared to prior tracing no significant change DOCTOR: Gaurav Jeter Interpretating Date/Time 11/19/2017 15:47:47
== END ==
LOC: CPRE 11:56
PROVIDERS: ATTEND Neurological Surgery
DX: Z01.812 Encounter for preprocedural laboratory examination (principal); Z01.810 Encounter for preprocedural cardiovascular examination; M48.062 Spinal stenosis, lumbar region with neurogenic claudication
CPT/HCPCS: 87640; 87641; 93005

== ENCOUNTER 2018-03-07 15:34 | Emergency (ER) | payer MEDICARE ==
[~2018-03-07] VITALS: Ht 154.9 cm; Wt 61.5 kg
[~2018-03-07 15:34] MED LIST changes: -ENOX30P SQ
[2018-03-07 15:40] VITALS: BP 96/61; PULSE 82; RESP 20; TEMP 97.1; O2SAT 94
[2018-03-07 16:06] VITALS: BP 115/78; PULSE 84; RESP 18; O2SAT 95
[2018-03-07] MEDS ORDERED: SODIUM CHLORID 0.9% 500 ML INJ 500 ML IV ONE (16:15)
[2018-03-07] MEDS ORDERED: SODIUM CHLORIDE 0.9% FLUSH 10 ML FLUSH IVF PRN (16:15)
[2018-03-07 16:37] VITALS: O2SAT 95
[2018-03-07 16:38] LABS: AUTOMATED NEUTROPHIL # 5.8 TH/MM3 (1.8-7.7); BASOPHIL # 0.1 TH/MM3 (0-0.2); BASOPHIL % 0.7 % (0.0-2.0); EOSINOPHIL # 0.1 TH/MM3 (0-0.4); EOSINOPHIL % 1.1 % (0.0-4.0); HEMATOCRIT 38.1 % (35.0-46.0); HEMOGLOBIN 12.4 GM/DL (11.6-15.3); LYMPH % 21.7 % (9.0-44.0); LYMPHOCYTE # 1.8 TH/MM3 (1.0-4.8); MEAN CELL VOLUME 90.1 FL (80.0-100.0); MEAN CORPUSCULAR HEMOGLOBIN 29.3 PG (27.0-34.0); MEAN CORPUSCULAR HGB CONC 32.5 % (32.0-36.0); MEAN PLATELET VOLUME 7.6 FL (7.0-11.0); MONO % 6.7 % (0.0-8.0); MONOCYTE # 0.6 TH/MM3 (0-0.9); NEUT % 69.8 % (16.0-70.0); PLATELET COUNT 230 TH/MM3 (150-450); RED BLOOD COUNT 4.23 MIL/MM3 (4.00-5.30); RED CELL DISTRIBUTION WIDTH 15.3 % (11.6-17.2); WHITE BLOOD COUNT 8.4 TH/MM3 (4.0-11.0)
[2018-03-07 16:45] LABS: CHLORIDE 106 MEQ/L (98-107); SODIUM (NA) 138 MEQ/L (136-145)
[2018-03-07 16:49] LABS: ALBUMIN 3.7 GM/DL (3.4-5.0); BICARBONATE 28.9 MEQ/L (21.0-32.0); BLOOD UREA NITROGEN 19 MG/DL (7-18); CALCIUM 8.9 MG/DL (8.5-10.1); GLUCOSE,RANDOM 102 MG/DL (74-106)
[2018-03-07 16:51] LABS: INTERNATIONAL NORMALIZED RATIO 1.3 RATIO; PROTHROMBIN TIME - PATIENT 12.7 SEC (9.8-11.6)
[2018-03-07 16:52] LABS: ALT (GPT) 24 U/L (10-53); AST (GOT) 9 U/L (15-37); GLOMERULAR FILTRATION RATE 40 ML/MIN (>89)
[2018-03-07 16:54] LABS: TOTAL BILIRUBIN ADULT 0.4 MG/DL (0.2-1.0); TOTAL PROTEIN 6.7 GM/DL (6.4-8.2)
[2018-03-07 16:55] LABS: ALKALINE PHOSPHATASE 55 U/L (45-117)
[2018-03-07 16:57] LABS: TROPONIN I LESS THAN 0.02 NG/ML (0.02-0.05)
--- NOTE | 2018-03-07 17:04 | RADRPT ---
EXAM DATE/TIME: 03/07/2018 16:41 [facility] COMPARISON: CT BRAIN W/O CONTRAST, May 23, 2013, 14:12. INDICATIONS : Dizziness. Cephalgia. RADIATION DOSE: 52.91 CTDIvol (mGy) MEDICAL HISTORY : Cardiovascular disease. Chronic obstructive pulmonary disease. SURGICAL HISTORY : Tonsillectomy. Cholecystectomy.Appendectomy.Hysterectomy, ENCOUNTER: Initial ACUITY: 1 day PAIN SCALE: 7/10 LOCATION: cranial TECHNIQUE: Multiple contiguous axial images were obtained of the head. Using automated exposure control and adj ustment of the mA and/or kV according to patient size, radiation dose was kept as low as reasonably a chievable to obtain optimal diagnostic quality images. DICOM format image data is available electro nically for review and comparison. FINDINGS: CEREBRUM: The ventricles are normal for age. No evidence of midline shift, mass lesion, hemorrhage or acute in farction. No extra-axial fluid collections are seen. POSTERIOR FOSSA: The cerebellum and brainstem are intact. The 4th ventricle is midline. The cerebellopontine angle i s unremarkable. EXTRACRANIAL: The visualized portion of the orbits is intact. SKULL: The calvaria is intact. No evidence of skull fracture. CONCLUSION: Normal examination. Chaz Sharif MD on March 07, 2018 at 17:01 Board Certified Radiologist. This report was verified electronically.
[2018-03-07 18:50] LABS: BILIRUBIN, URINE NEG (NEG); BLOOD, URINE NEG (NEG); GLUCOSE,URINE NEG (NEG); KETONE, URINE NEG (NEG); NITRITE,URINE NEG (NEG); PH, URINE 6.5 (5.0-8.5); URINE COLOR YELLOW (YELLW/STRAW); URINE LEUKOCYTE ESTERASE NEG (NEG)
[2018-03-07 18:55] LABS: SQUAMOUS EPITHELIAL CELL URINE 0-5 /hpf (0-5); WBC, URINE 0-2 /hpf (0-5)
[2018-03-07 19:08] VITALS: BP 153/84
--- NOTE | 2018-03-07 19:08 | PD ---
HPI Chief Complaint: Dizziness Time Seen by Provider: 15:53 Travel History International Travel<30 days: No Contact w/Intl Traveler<30days: No Traveled to known affect area: No History of Present Illness HPI Patient is a 78-year-old female who comes in from her neurologist's office due to low blood pressure. She reports some episodes of dizziness over the past few days. She has been having issues with her blood pressure and has seen her primary care doctor for this who has ordered a Holter monitor and carotid Doppler, however she has not completed any of these things. She reports only eating a bowl of cereal today. She denies chest pain or shortness of breath. The note from the neurologist states that the blood pressures were manually taken and they were difficult to hear. Patient does not take any blood pressure medications. She has not been feeling ill lately. Severity is mild. PFSH Past Medical History Hx Anticoagulant Therapy: Yes (Xarelto) Arthritis: Yes Anxiety: Yes Depression: Yes Cancer: No Cardiovascular Problems: Yes (CHEST PAIN SECONDARY TO ANXIETY) Diabetes: No Diminished Hearing: No Deep Vein Thrombosis: Yes Endocrine: Yes Gastrointestinal Disorders: Yes (GERD, IBS) Genitourinary: Yes (INCONTINENCE) Hepatitis: No Hiatal Hernia: Yes Immune Disorder: No Musculoskeletal: Yes (OA) Neurologic: Yes (DDD, SPINAL STENOSIS, widening aneurysm behind eyes) Psychiatric: Yes (ANXIETY, DEPRESSION) Reproductive: No Respiratory: Yes (COPD) Immunizations Current: No Thyroid Disease: Yes (Hypo-) Ulcer: No Influenza Vaccination: Yes ?: Not Menopausal: Yes Dilation and Curettage (D&C): Yes Tubal Ligation: Yes Past Surgical History Abdominal Surgery: Yes (CHOLECYSTECTOMY, APPENDECTOMY) AICD: No Appendectomy: Yes Cardiac Surgery: Yes (CARDIAC CATH) Cholecystectomy: Yes Ear Surgery: No Endocrine Surgery: No Eye Surgery: No Genitourinary Surgery: Yes (BLADDER SUSPENSION) Gynecologic Surgery: Yes (TOTAL HYSTERECTOMY) Hysterectomy: Yes Joint Replacement: No Oral Surgery: Yes (Teeth extracted, T/A) Pacemaker: No Thoracic Surgery: No Tonsillectomy: Yes Other Surgery: Yes (Face lift ) Social History Alcohol Use: Yes (Occ.) Tobacco Use: Yes (E CIGS) Substance Use: No Allergies-Medications (Allergen,Severity, Reaction): Uncoded Allergies: caffeine tablets (Adverse Reaction, Unknown, 11/28/17) Reported Meds & Prescriptions Reported Meds & Active Scripts Active Xarelto (Rivaroxaban) 15 Mg Tab 15 Mg PO Q12HR [address] (Duloxetine HCl) 20 Mg Capdr 20 Mg PO DAILY Morphabond ER 12 HR (Morphine Sulfate) 15 Mg Tab 15 Mg PO Q12H Hydrocodone-Acetamin 10-325 mg (Hydrocodone/Acetaminophen) 10 Mg-325 Mg Tablet 1 Tab PO Q4HR PRN Gabapentin 300 Mg Cap 300 Mg PO HS Vitamin D3 (Cholecalciferol) 1,000 Unit Tab 1,000 Units PO DAILY Levothyroxine (Levothyroxine Sodium) 75 Mcg Tab 75 Mcg PO DAILY Vitamin B-12 (Cyanocobalamin) 1,000 Mcg Tab 1,000 Mcg PO DAILY Multiple Vitamin 1 Tab 1 Tab PO DAILY Melatonin 5 Mg Tab 3 Mg PO HS Calcium 600+D Plus Minerals (Calcium Carbonate-Vitamin D W/Minerals) 600-400 Mg- Unit Tab 1 Tab PO BID Review of Systems Except as stated in HPI: all other systems reviewed are Neg General / Constitutional: No: Fever, Chills Eyes: No: Blurred Vision HENT: Positive: Lightheadedness, No: Headaches Cardiovascular: No: Chest Pain or Discomfort Respiratory: No: Shortness of Breath Gastrointestinal: No: Nausea, Vomiting Musculoskeletal: No: Myalgias Skin: No Rash, No Change in Pigmentation Neurologic: No: Weakness, Syncope Physical Exam Narrative GENERAL: Awake and alert, in no acute distress. SKIN: Focused skin assessment warm/dry. HEAD: Atraumatic. Normocephalic. EYES: Pupils equal and round. No scleral icterus. Extraocular movements intact. ENT: Mucous membranes pink and moist. NECK: Trachea midline. No JVD. CARDIOVASCULAR: Regular rate and rhythm. No murmur appreciated. RESPIRATORY: No accessory muscle use. Clear to auscultation. Breath sounds equal bilaterally. GASTROINTESTINAL: Abdomen soft, non-tender, nondistended. MUSCULOSKELETAL: No obvious deformities. No clubbing. No cyanosis. No edema. NEUROLOGICAL: Awake and alert. No obvious cranial nerve deficits. Motor grossly within normal limits. Normal speech. PSYCHIATRIC: Appropriate mood and affect; insight and judgment normal. Data Data Last Documented VS Vital Signs Date Time Temp Pulse Resp B/P (MAP) Pulse Ox O2 Delivery O2 Flow Rate FiO2 03/07/18 16:37 95 Room Air 03/07/18 16:06 84 18 03/07/18 15:40 97.1 Orders Orders Electrocardiogram (03/07/18 16:03) Complete Blood Count With Diff (03/07/18 16:03) Comprehensive Metabolic Panel (03/07/18 16:03) Troponin I (03/07/18 16:03) Act Partial Throm Time (Ptt) (03/07/18 16:03) Prothrombin Time / Inr (Pt) (03/07/18 16:03) Urinalysis - C+S If Indicated (03/07/18 16:03) Ct Brain W/O Iv Contrast(Rout) (03/07/18 16:03) Ecg Monitoring (03/07/18 16:03) Iv Access Insert/Monitor (03/07/18 16:03) Oximetry (03/07/18 16:03) Sodium Chloride 0.9% Flush (Ns Flush) (03/07/18 16:15) Sodium Chlorid 0.9% 500 Ml Inj (Ns 500 M (03/07/18 16:15) Labs Laboratory Tests Test 03/07/18 16:30 03/07/18 18:40 White Blood Count 8.4 TH/MM3 Red Blood Count 4.23 MIL/MM3 Hemoglobin 12.4 GM/DL Hematocrit 38.1 % Mean Corpuscular Volume 90.1 FL Mean Corpuscular Hemoglobin 29.3 PG Mean Corpuscular Hemoglobin Concent 32.5 % Red Cell Distribution Width 15.3 % Platelet Count 230 TH/MM3 Mean Platelet Volume 7.6 FL Neutrophils (%) (Auto) 69.8 % Lymphocytes (%) (Auto) 21.7 % Monocytes (%) (Auto) 6.7 % Eosinophils (%) (Auto) 1.1 % Basophils (%) (Auto) 0.7 % Neutrophils # (Auto) 5.8 TH/MM3 Lymphocytes # (Auto) 1.8 TH/MM3 Monocytes # (Auto) 0.6 TH/MM3 Eosinophils # (Auto) 0.1 TH/MM3 Basophils # (Auto) 0.1 TH/MM3 CBC Comment DIFF FINAL Differential Comment Prothrombin Time 12.7 SEC Prothromb Time International Ratio 1.3 RATIO Activated Partial Thromboplast Time 27.8 SEC Blood Urea Nitrogen 19 MG/DL Creatinine 1.30 MG/DL Random Glucose 102 MG/DL Total Protein 6.7 GM/DL Albumin 3.7 GM/DL Calcium Level 8.9 MG/DL Alkaline Phosphatase 55 U/L Aspartate Amino Transf (AST/SGOT) 9 U/L Alanine Aminotransferase (ALT/SGPT) 24 U/L Total Bilirubin 0.4 MG/DL Sodium Level 138 MEQ/L Potassium Level 4.0 MEQ/L Chloride Level 106 MEQ/L Carbon Dioxide Level 28.9 MEQ/L Anion Gap 3 MEQ/L Estimat Glomerular Filtration Rate 40 ML/MIN Troponin I LESS THAN 0.02 NG/ML Urine Color YELLOW Urine Turbidity CLEAR Urine pH 6.5 Urine Specific [place] LESS/EQUAL 1.005 Urine Protein NEG mg/dL Urine Glucose (UA) NEG mg/dL Urine Ketones NEG mg/dL Urine Occult Blood NEG Urine Nitrite NEG Urine Bilirubin NEG Urine Urobilinogen 0.2 MG/DL Urine Leukocyte Esterase NEG Urine WBC 0-2 /hpf Urine Squamous Epithelial Cells 0-5 /hpf Microscopic Urinalysis Comment CULT NOT INDICATED MDM Medical Decision Making Medical Screen Exam Complete: Yes Emergency Medical Condition: Yes Medical Record Reviewed: Yes Interpretation(s) ECG shows sinus rhythm at a rate of 75, no ST elevation or depression Differential Diagnosis Dehydration versus medication effect versus infection versus electrolyte abnormality Narrative Course Patient is a 78-year-old female who comes in due to low blood pressure. On arrival, her blood pressure has improved per the neurologists readings. Exam shows no acute abnormalities. IV established, labs sent. Labs show no acute abnormalities. CT head performed shows no acute abnormalities. Last [address] 03/07/18 1603 Signed Impressions: Service Date/Time: Wednesday, March 07, 2018 16:41 - CONCLUSION: Normal examination. Chaz Sharif MD I spoke with her doctor, Dr. Mckeon regarding the patient. She is concerned that her Cymbalta might be causing the hypotension. She says she will call in a prescription for lower dose and see the patient in the office on Saturday. I also mentioned that the large amount of pain medicine that the patient is on may be causing her symptoms. She takes 10 mg hydrocodone as well as extended release morphine. Patient has remained stable, has not had any drops in her blood pressure while she has been here. She is advised to increase her fluid intake. Advised to follow-up with Dr. Mckeon on Saturday. Advised to shrimp picker the new prescription from the pharmacy for the Cymbalta. Advised to return to the ED as needed for any worsening symptoms. I did discuss with the patient that she may be taking too much pain medicine, however she does not feel this is the case. 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 Follow-up with Dr. Mckeon on Saturday. Return to the ED as needed for any worsening symptoms. Increase her fluid intake. Disposition: 01 DISCHARGE HOME Condition: Stable Shelbi Boyd MD Mar 07, 2018 19:08
--- NOTE | 2018-03-07 23:30 | EKG ---
Date Performed: 03/07/2018 Time Performed: 16:25:14 PTAGE: 78 years EKG: Sinus rhythm NONSPECIFIC T-WAVE ABNORMALITY BORDERLINE ECG PREVIOUS TRACING : 11/18/2017 13.05 Since the previous tracing, no significant change noted DOCTOR: Igor Tejada Interpretating Date/Time 03/07/2018 23:29:17
== END 2018-03-07 19:19 | disposition home or self-care (01) ==
LOC: PHED 15:34
DX: I95.2 Hypotension due to drugs (principal); T50.905A Adverse effect of unspecified drugs, medicaments and biological substances, initial encounter; F32.9 Major depressive disorder, single episode, unspecified; F41.9 Anxiety disorder, unspecified; J44.9 Chronic obstructive pulmonary disease, unspecified; K21.9 Gastro-esophageal reflux disease without esophagitis; M19.90 Unspecified osteoarthritis, unspecified site; Z86.718 Personal history of other venous thrombosis and embolism; Z72.0 Tobacco use
CPT/HCPCS: 70450; 80053; 81001; 84484; 85025; 85610; 85730; 93005; 96360; 96361; 99284; J7040